=== PATIENT | female | born 1995 | race Caucasian/White ===

== ENCOUNTER 2022-04-03 07:01 | Emergency (ER) | payer SELFPAY ==
[2022-04-03] MEDS ORDERED: Sodium Chloride 0.9% 1000 ML 1,000 ML IV STA (07:24)
[2022-04-03 07:34] VITALS: O2SAT 99
[2022-04-03] MEDS ORDERED: Sodium Chloride 0.9% 1000 ML 1,000 ML ONE (07:36)
[2022-04-03 07:44] LABS: Absolute Neutrophil Ct (ANC) 2.27 x10^3/uL (1.4-6.9); Basophil (Absolute #) 0.03 x10^3/uL (0-0.4); Eosinophil % 1.6 % (0.00-5.0); Eosinophil (Absolute #) 0.06 x10^3/uL (0-0.5); Hematocrit 40.3 % (35-47); Hemoglobin 13.1 g/dL (12.0-16.0); Lymphocyte (Absolute #) 0.97 x10^3/uL (1.0-4.6); Lymphocytes % 26.2 % (24.0-44.0); Mean Cell Volume 90.8 fL (78-100); Mean Corpuscular Hemoglobin 29.5 pg (26-32); Mean Corpuscular Hgb Concent. 32.5 g/dL (32-36); Mean Platelet Volume 10.1 fL (7.5-11.0); Monocyte (Absolute #) 0.36 x10^3/uL (0.0-1.3); Monocytes % 9.7 % (0.0-12.0); Neutrophil % 61.4 % (36.0-66.0); Platelet Count 214 x10^3/uL (150-450); Red Blood Count 4.44 x10^6/uL (4.1-5.4); Red Cell Distribution Width 12.6 % (11.5-14.0); White Blood Count 3.7 x10^3/uL (4.0-10.5)
--- NOTE | 2022-04-03 07:46 | ERPHSYRPT ---
- History of Present Illness Time Seen by Provider: 04/03/22 07:41 Source: patient Exam Limitations: no limitations Patient Subjective Stated Complaint: HTN Triage Nursing Assessment: Patient ambulated back to ED and transferred self to bed. Patient A+O X 3. Patient's skin pink, warm and dry. Patient states she works at [employer] and during roll call when she came dizzy and felt like she was going to pass out. [facility] was [facility] and evaluated with elevated blood presure 149/107 and pulse of 115. Patient states she has a heada ilsa 5/10. Physician History: Patient is a 27-year-old female who works at the [employer]. During her alcohol this morning she developed dizziness weakness she became hot diaphoretic she thought her legs were going to give out and she thought she was going to pass out. Shortly thereafter he did she developed an occipital headache. She was taken to the [facility] there and found to have a heart rate of 116 and a blood pressure of 147/109. She is generally pretty healthy other than a history of some asthma and she does use an inhaler last and used yesterday. Witnessed: other ([employer]) Prior Episodes: single episode today Timing/Duration: today Precipitating Factors: diaphoresis, lightheadedness, rapid heart beat Context: standing Loss of Consciousness: no loss of consciousness Charcter of event(s): almost passed out Allergies/Adverse Reactions: No Known Drug Allergies Allergy (Unverified 04/03/22 07:17) Home Medications: Albuterol Sulfate [Albuterol Sulfate Hfa] 2 puffs IH Q4H PRN PRN 04/03/22 [History] Hx Influenza Vaccination/Date Given: No Hx Pneumococcal Vaccination/Date Given: No Immunizations Up to Date: Yes Travel Risk - International Travel Have you traveled outside of the country in past 3 weeks: No - Coronavirus Screening Are you exhibiting any of the following symptoms?: No - Vaccine Status Have you recieved a Covid-19 vaccination: No - Past Medical History Pertinent Past Medical History: No Neurological History: No Pertinent History ENT History: No Pertinent History Cardiac History: No Pertinent History Respiratory History: Asthma Endocrine Medical History: No Pertinent History Musculoskeletal History: No Pertinent History GI Medical History: No Pertinent History History: No Pertinent History Psycho-Social History: No Pertinent History Female Reproductive Disorders: No Pertinent History - Past Surgical History Past Surgical History: Yes Neuro Surgical History: No Pertinent History Cardiac: No Pertinent History Respiratory: No Pertinent History Gastrointestinal: Cholecystectomy Genitourinary: No Pertinent History Musculoskeletal: No Pertinent History Female Surgical History: Tubal Ligation - Social History Smoking Status: Former smoker Exposure to second hand smoke: No Drug Use: marijuana Patient Lives Alone: No - Female History Hx Last Menstrual Period: today Hx Now: No - Review of Systems Constitutional: Weakness, No Fever, No Chills Eyes: No Symptoms Ears, Nose, & Throat: No Symptoms Respiratory: No Cough, No Dyspnea Cardiac: Palpitations, Syncope (Near syncope), No Chest Pain, No Edema Abdominal/Gastrointestinal: No Abdominal Pain, No Nausea, No Vomiting, No Diarrhea Genitourinary Symptoms: Vaginal Bleeding (She did start her menses upon arrival in the ER), No Dysuria Musculoskeletal: No Back Pain, No Neck Pain Skin: No Rash Neurological: Dizziness, Headache, Vertigo, No Focal Weakness, No Sensory Changes Psychological: No Symptoms Endocrine: No Symptoms Hematologic/Lymphatic: No Symptoms Immunological/Allergic: No Symptoms All Other Systems: Reviewed and Negative Physical Exam - Nursing Vital Signs Nursing Vital Signs: Initial Vital Signs Temperature 98.3 F 04/03/22 07:20 Pulse Rate 86 04/03/22 07:20 Respiratory Rate 18 04/03/22 07:20 Blood Pressure 127/94 04/03/22 07:20 O2 Sat by Pulse Oximetry 99 04/03/22 07:20 Pain Scale Pain Intensity 5 - [place] Coma Scale Best Eye Response (Maryam): (4) open spontaneously Best Verbal Response ([place]): (5) oriented Best Motor Response (Maryam): (6) obeys commands Maryam Total: 15 - Physical Exam General Appearance: no apparent distress, alert Eye Exam: bilateral eye: PERRL, EOMI Ears, Nose, Throat Exam: normal ENT inspection, pharynx normal, moist mucous membranes Neck Exam: normal inspection, non-tender, supple, full range of motion Respiratory: normal breath sounds, lungs clear, No chest tenderness, No respiratory distress Cardiovascular: regular rate/rhythm, capillary refill <2 sec, No murmur, No pulse deficit Gastrointestinal: soft, No tenderness, No distention, No mass Back Exam: normal inspection, normal range of motion, No CVA tenderness, No vertebral tenderness Extremity Exam: normal inspection, normal range of motion, pelvis stable, No tenderness Peripheral Pulses: carotid (R): 2+, carotid (L): 2+ Mental Status: alert, oriented x 3, cooperative senior engineering associate Exam: normal speech, PERRL, No facial droop Coordination/Gait: normal finger to nose Motor/Sensory: no motor deficit, no sensory deficit, no pronator drift Skin Exam: normal color, warm, dry, No rash SpO2 Interpretation: normal SpO2: 99 O2 Delivery: Room Air - Course Nursing assessment & vital signs reviewed: Yes EKG Interpreted by Me: RATE (79), Sinus Rhythm, NORMAL AXIS, NORMAL INTERVALS, NORMAL QRS, NORMAL ST-T - Radiology Exams Chest X-ray Interpretation: Interpreted by me, Negative - CT Exams Head CT Interpretation: Negative ([place] by me) Ordered Tests: Active Orders 24 hr Category Date Time Status EKG-ER Only STAT Care 04/03/22 07:24 Active IV Insertion STAT Care 04/03/22 07:24 Active Orthostatic Vital Signs STAT Care 04/03/22 07:26 Active CHEST 1 VIEW (PORTABLE) Stat Exams 04/03/22 07:24 Taken HEAD WITHOUT CONTRAST [CT] Stat Exams 04/03/22 07:39 Taken CBC W DIFF Stat Lab 04/03/22 07:34 Completed CMP Stat Lab 04/03/22 07:34 Completed TROPONIN Q4H Lab 04/03/22 07:34 Completed TROPONIN Q4H Lab 04/03/22 11:30 Ordered TROPONIN Q4H Lab 04/03/22 15:30 Ordered TROPONIN Q4H Lab 04/03/22 19:30 Ordered TROPONIN Q4H Lab 04/03/22 23:30 Ordered UA W/RFX CULTURE Stat Lab 04/03/22 07:26 Completed Medication Summary Discontinued Medications Generic Name Dose Route Start Last Admin Trade Name Freq PRN Reason Stop Dose Admin Sodium Chloride 1,000 mls @ 999 mls/hr 04/03/22 07:24 04/03/22 08:44 Sodium Chloride 0.9% 1000 Ml IV 04/03/22 08:24 Infused .Q1H1M STA Infusion Sodium Chloride Confirm 04/03/22 07:36 Sodium Chloride 0.9% 1000 Ml Administered 04/03/22 07:37 Dose 1,000 mls @ ud .ROUTE .STK-MED ONE Lab/Rad Data: Laboratory Result Diagrams 04/03/22 07:34 04/03/22 07:34 Laboratory Results 04/03/22 04/03/22 04/03/22 Range/Units 07:35 07:34 07:34 WBC 3.7 L (4.0-10.5) x10^3/uL RBC 4.44 (4.1-5.4) x10^6/uL Hgb 13.1 (12.0-16.0) g/dL Hct 40.3 (35-47) % MCV 90.8 (78-100) fL MCH 29.5 (26-32) pg MCHC 32.5 (32-36) g/dL RDW 12.6 (11.5-14.0) % Plt Count 214 (150-450) x10^3/uL MPV 10.1 (7.5-11.0) fL Gran % 61.4 (36.0-66.0) % Immature Gran % (Auto) 0.3 (0.00-0.4) % Nucleat RBC Rel Count 0.0 (0.00-0.1) % Eos # (Auto) 0.06 (0-0.5) x10^3/uL Immature Gran # (Auto) 0.01 (0.00-0.03) x10^3u/L Absolute Lymphs (auto) 0.97 L (1.0-4.6) x10^3/uL Absolute Monos (auto) 0.36 (0.0-1.3) x10^3/uL Absolute Nucleated RBC 0.00 (0.00-0.01) x10^3u/L Lymphocytes % 26.2 (24.0-44.0) % Monocytes % 9.7 (0.0-12.0) % Eosinophils % 1.6 (0.00-5.0) % Basophils % 0.8 (0.0-0.4) % Absolute Granulocytes 2.27 (1.4-6.9) x10^3/uL Basophils # 0.03 (0-0.4) x10^3/uL Sodium (137-145) mmol/L Potassium (3.5-5.1) mmol/L Chloride (98-107) mmol/L Carbon Dioxide (22-30) mmol/L Anion Gap (5-15) MEQ/L BUN (7-17) mg/dL Creatinine (0.52-1.04) mg/dL Estimated GFR ML/MIN Glucose (74-106) mg/dL Calcium (8.4-10.2) mg/dL Total Bilirubin (0.2-1.3) mg/dL AST (14-36) U/L ALT (0-35) U/L Alkaline Phosphatase (38-126) U/L Troponin I < 0.012 (0.000-0.034) ng/mL Serum Total Protein (6.3-8.2) g/dL Albumin (3.5-5.0) g/dL Urinalys Dipstick Clnc Urine Color (YELLOW) Urine Appearance (CLEAR) Urine pH (5-6) Ur Specific [place] (1.005-1.025) POC Urine Protein Conf (Negative) Urine Ketones (NEGATIVE) Urine Nitrite (NEGATIVE) Urine Bilirubin (NEGATIVE) Urine Urobilinogen (0-1) mg/dL Urine Leukocytes (NEGATIVE) Urine WBC (Auto) (0-5) /HPF Urine RBC (Auto) (0-2) /HPF U Epithel Cells (Auto) (FEW) /HPF Urine Bacteria (Auto) (NEGATIVE) /HPF Urine RBC (0-5) Amos/ul Urine Mucus (Auto) (NEGATIVE) /HPF Ur Culture Indicated? Urine Glucose (NEGATIVE) mg/dL Influenza Type A Ag POSITIVE (NEGATIVE) Influenza Type B Ag NEGATIVE (NEGATIVE) RSV (PCR) NEGATIVE (Negative) SARS-CoV-2 (PCR) NEGATIVE (NEGATIVE) 04/03/22 04/03/22 Range/Units 07:34 07:26 WBC (4.0-10.5) x10^3/uL RBC (4.1-5.4) x10^6/uL Hgb (12.0-16.0) g/dL Hct (35-47) % MCV (78-100) fL MCH (26-32) pg MCHC (32-36) g/dL RDW (11.5-14.0) % Plt Count (150-450) x10^3/uL MPV (7.5-11.0) fL Gran % (36.0-66.0) % Immature Gran % (Auto) (0.00-0.4) % Nucleat RBC Rel Count (0.00-0.1) % Eos # (Auto) (0-0.5) x10^3/uL Immature Gran # (Auto) (0.00-0.03) x10^3u/L Absolute Lymphs (auto) (1.0-4.6) x10^3/uL Absolute Monos (auto) (0.0-1.3) x10^3/uL Absolute Nucleated RBC (0.00-0.01) x10^3u/L Lymphocytes % (24.0-44.0) % Monocytes % (0.0-12.0) % Eosinophils % (0.00-5.0) % Basophils % (0.0-0.4) % Absolute Granulocytes (1.4-6.9) x10^3/uL Basophils # (0-0.4) x10^3/uL Sodium 140 (137-145) mmol/L Potassium 3.9 (3.5-5.1) mmol/L Chloride 110 H (98-107) mmol/L Carbon Dioxide 21 L (22-30) mmol/L Anion Gap 13.0 (5-15) MEQ/L BUN 12 (7-17) mg/dL Creatinine 0.69 (0.52-1.04) mg/dL Estimated GFR > 60.0 ML/MIN Glucose 84 (74-106) mg/dL Calcium 8.8 (8.4-10.2) mg/dL Total Bilirubin 0.20 (0.2-1.3) mg/dL AST 75 H (14-36) U/L ALT 85 H (0-35) U/L Alkaline Phosphatase 65 (38-126) U/L Troponin I (0.000-0.034) ng/mL Serum Total Protein 7.5 (6.3-8.2) g/dL Albumin 4.2 (3.5-5.0) g/dL Urinalys Dipstick Clnc MAIN LAB Urine Color YELLOW (YELLOW) Urine Appearance CLEAR (CLEAR) Urine pH 5.5 (5-6) Ur Specific [place] >=1.030 A (1.005-1.025) POC Urine Protein Conf NEGATIVE (Negative) Urine Ketones SMALL-15 A (NEGATIVE) Urine Nitrite NEGATIVE (NEGATIVE) Urine Bilirubin NEGATIVE (NEGATIVE) Urine Urobilinogen 0.2 (0-1) mg/dL Urine Leukocytes NEGATIVE (NEGATIVE) Urine WBC (Auto) 3-5 A (0-5) /HPF Urine RBC (Auto) 3-5 A (0-2) /HPF U Epithel Cells (Auto) RARE (FEW) /HPF Urine Bacteria (Auto) RARE (NEGATIVE) /HPF Urine RBC LARGE A (0-5) Amos/ul Urine Mucus (Auto) SLIGHT A (NEGATIVE) /HPF Ur Culture Indicated? NO Urine Glucose NEGATIVE (NEGATIVE) mg/dL Influenza Type A Ag (NEGATIVE) Influenza Type B Ag (NEGATIVE) RSV (PCR) (Negative) SARS-CoV-2 (PCR) (NEGATIVE) - Progress Progress: unchanged Progress Note: 04/03/22 07:48 Medical decision making in this patient is guided by the fact that she had a near syncopal episode with that she became diaphoretic felt warm dizzy weak leg and then shortly thereafter developed an occipital headache which she rated 5 of 10. Our work-up will include EKG and troponin orthostatic vital signs to rule out dehydration IV fluids to treat any possible dehydration. She also will have a chest x-ray because of her history of asthma she will have a CT of the head because of her dizziness associated with this episode. We will also be checking renal function and a urinalysis. We also will be checking COVID flu and RSV because of her exposures at her job. 04/03/22 09:09 Patient tested positive for influenza A she was taken off work for 5 days. She will be given Tamiflu and encouraged to push fluids. - Departure Departure Disposition: Home Clinical Impression: Influenza A Condition: Stable Critical Care Time: No Referrals: GUI REBOLLEDO MD [Primary Care Provider] - Follow up/PCP as directed Instructions: Flu, Adult (DC) Forms: Work/School Release Form Prescriptions: Oseltamivir 75 mg [Tamiflu 75MG Capsule] 75 mg PO BID #10 cap
[2022-04-03 08:15] LABS: Appearance CLEAR (CLEAR); Bacteria RARE /HPF (NEGATIVE); Bilirubin NEGATIVE (NEGATIVE); Epithelial Cells RARE /HPF (FEW); Glucose NEGATIVE (NEGATIVE); Ketones SMALL-15 (NEGATIVE); Mucus SLIGHT /HPF (NEGATIVE); Nitrite NEGATIVE (NEGATIVE); Ph 5.5 (5-6); Protein,Urine Dip NEGATIVE (Negative); RBC LARGE Ery/ul (0-5); Specific Gravity >=1.030 (1.005-1.025); Urobilinogen 0.2 mg/dL (0-1)
[2022-04-03 08:16] LABS: Dipstick done @ ? MAIN LAB; Urine Cultured Indicated? NO
[2022-04-03 08:21] LABS: INFLUENZA B NEGATIVE (NEGATIVE); RESPIRATORY SYNCTIAL VIRUS NEGATIVE (Negative); SARS-CoV-2 Xpert Express NEGATIVE (NEGATIVE)
[2022-04-03 08:36] LABS: INFLUENZA A POSITIVE (NEGATIVE)
[2022-04-03 08:43] LABS: ALBUMIN 4.2 g/dL (3.5-5.0); ALKALINE PHOSPHATASE 65 U/L (38-126); BLOOD UREA NITROGEN 12 mg/dL (7-17); CHLORIDE 110 mmol/L (98-107); Calcium 8.8 mg/dL (8.4-10.2); Carbon Dioxide 21 mmol/L (22-30); Creatinine 1 0.69 mg/dL (0.52-1.04); EST GLOMERULAR FILTRATION RATE > 60.0 ML/MIN; Glucose 84 mg/dL (74-106); Potassium 3.9 mmol/L (3.5-5.1); SGOT/AST 75 U/L (14-36); SGPT/ALT 85 U/L (0-35); SODIUM 140 mmol/L (137-145); Total Protein 7.5 g/dL (6.3-8.2)
--- NOTE | 2022-04-03 09:19 | XRAY ---
Indication: Short of breath. Lightheaded. Comparison: None Portable chest demonstrates normal heart and lungs. Bony thorax intact.
[2022-04-03 09:31] VITALS: BP 126/79; PULSE 81
--- NOTE | 2022-04-03 18:45 | XRAY ---
Indication: Dizziness. Near-syncope. Multiple contiguous axial images obtained through the head without contrast. Comparison: None Ventriculosulcal pattern appears symmetric. Tiny remote lacunar infarct posterior limb right external capsule. No acute intracranial hemorrhage, abnormal extra-axial fluid collection, or mass effect. Fourth ventricle is midline without hydrocephalus. Wahl-white matter differentiation preserved. Visualized paranasal sinuses and mastoid air cells are clear. Impression: Tiny remote lacunar infarct right external capsule. Remaining CT head without contrast exam is normal. Comment: Preliminary interpretation made by [facility]. No critical discrepancy.
== END 2022-04-03 09:32 | disposition home or self-care (01) ==
LOC: ED 07:01
DX: J10.1 Influenza due to other identified influenza virus with other respiratory manifestations (principal); R55 Syncope and collapse; R51.9 Headache, unspecified; Z79.899 Other long term (current) drug therapy; Z28.310 Unvaccinated for COVID-19
CPT/HCPCS: 0241U; 36000; 36415; 70450; 71045; 80053; 81015; 84484; 85025; 93005; 96360; 99284